=== PATIENT | female | born 1950 | race Caucasian/White ===

== ENCOUNTER 2018-12-11 22:27 | Emergency (ER) | payer MEDICARE ==
[~2018-12-11] VITALS: Ht 157.5 cm; Wt 77.1 kg
[~2018-12-11 22:27] MED LIST: ASPI-482 PO; LOSA1TAB25 PO; MECL25TA3 PO; METF500T16 PO; SIMV40TA3 PO
[2018-12-11 22:44] VITALS: BP 170/76
[2018-12-11] MEDS ORDERED: METO-239 PO (22:52)
[2018-12-11] MEDS ORDERED: APIX5TAB PO (22:52)
[2018-12-11] MEDS ORDERED: CYCL5TAB PO (23:24)
[2018-12-11] MEDS ORDERED: HYDR-3164 PO (23:24)
--- NOTE | 2018-12-11 23:24 | PHYS DOC ---
Past Medical History Past Medical History: A-Fib, High Cholesterol, Hypertension, Other Additional Past Medical Histor: high cholestrol Past Surgical History: Appendectomy, Tonsillectomy Additional Past Surgical Histo: rectocele with possible bladder suspension. Alcohol Use: Occasionally Drug Use: None Adult General Chief Complaint Chief Complaint: Neck Pain HPI HPI Patient is a 68 year old female who presents with complaining of neck pain. Patient states she woke up this morning and had right-sided neck pain that getting worse with movements of her neck. Patient states the pain radiated to her right arm and fingers without focal neuro deficit, fever and chills, nausea and vomiting, head injury, history of the same problem. Patient states she applied ice to heart and heat on her neck but her pain gradually getting worse. Patient states she took ibuprofen without improvement of her pain. Review of Systems Review of Systems Constitutional: Denies fever or chills [] Eyes: Denies change in visual acuity, redness, or eye pain [] HENT: Denies nasal congestion or sore throat [] Respiratory: Denies cough or shortness of breath [] Cardiovascular: No additional information not addressed in HPI [] GI: Denies abdominal pain, nausea, vomiting, bloody stools or diarrhea [] : Denies dysuria or hematuria [] Musculoskeletal: Denies back pain or joint pain , reports neck pain Integument: Denies rash or skin lesions [] Neurologic: Denies headache, focal weakness or sensory changes [] Endocrine: Denies polyuria or polydipsia [] All other systems were reviewed and found to be within normal limits, except as documented in this note. Current Medications Current Medications Current Medications Medications (Trade) Dose Ordered Sig/Vidal Start Time Stop Time Status Last Admin Dose Admin Acetaminophen/ Hydrocodone Bitart (Lortab 5/325) 1 tab 1X ONCE 12/11/18 23:30 12/11/18 23:31 DC 12/11/18 23:32 1 TAB Cyclobenzaprine HCl (Flexeril) 10 mg 1X ONCE 12/11/18 23:30 12/11/18 23:31 DC 12/11/18 23:32 10 MG Allergies Allergies Allergies Coded Allergies Type Severity Reaction Last Updated Verified shrimp Allergy Intermediate shrimp flavoring 12/31/14 Yes Physical Exam Physical Exam Constitutional: Well developed, well nourished, mild distress, non-toxic appearance. [] HENT: Normocephalic, atraumatic. Eyes: PERRLA, EOMI, conjunctiva normal, no discharge. [] Neck: Right right cervical muscle spasm, painful range of motion, no neck rigidity Cardiovascular:Heart rate regular rhythm, no murmur [] Lungs & Thorax: Bilateral breath sounds clear to auscultation [] Back: No tenderness, no CVA tenderness. [] Extremities: No tenderness, no cyanosis, no clubbing, ROM intact, no edema. [] Neurologic: Alert and oriented X 3, no focal deficits noted. [] Psychologic: Affect normal, judgement normal, mood normal. [] Current Patient Data Vital Signs Vital Signs Date Time Temp Pulse Resp B/P (MAP) Pulse Ox O2 Delivery O2 Flow Rate FiO2 12/11/18 23:32 98 Room Air 12/11/18 22:44 98.9 64 20 170/76 (107) 98.9 EKG EKG [] Radiology/Procedures Radiology/Procedures [] Course & Med Decision Making Course & Med Decision Making discharge: I've spoken with the patient and/or caregivers. I've explained the patient's condition, diagnosis and treatment plan based on information available to me at this time. I've answered the patient's and/or caregivers questions and addressed any concerns. The patient and/or caregivers have a good understanding the patient's diagnosis, condition and treatment plan as can be expected at this point. Vital signs have been stabilized. The patient's condition is stable for discharge from the emergency department. The patient will pursue further outpatient evaluation with her primary care provider or other designated consulting physician as outlined in the discharge instructions. Patient and/or caregivers are agreeable to this plan of care and follow-up instructions have been explained in detail. The patient and/or caregivers have received these instructions in written format and expressed understanding of these discharge instructions. The patient and her caregivers are aware that if any significant change in condition or worsening of symptoms should prompt him to immediately return to this of the closest emergency department. If an emergent department is not readily available I would encourage him to call 911. Rhoda Disclaimer Rhoda Disclaimer This electronic medical record was generated, in whole or in part, using a voice recognition dictation system. Departure Departure Impression: Primary Impression: Acute cervical myofascial strain Disposition: HOME, SELF-CARE (at 2330) Condition: IMPROVED Referrals: LUIZA,REY L MD (PCP) Patient Instructions: Cervical Strain and Sprain with [facility] Additional Instructions: Apply ice on your neck Follow-up with your primary care physician in 3-5 days Return to ER if not getting better Scripts Hydrocodone/Apap 5-325 (NORCO 5-325 TABLET) 1 Each Tablet 1 TAB PO PRN Q6HRS PRN for PAIN, #14 TAB 0 Refills Prov: RAÚL SHAVER MD 12/11/18 Cyclobenzaprine Hcl (CYCLOBENZAPRINE HCL) 5 Mg Tablet 1 TAB PO TID, #30 TAB Prov: RAÚL SHAVER MD 12/11/18 Problem Qualifiers Primary Impression: Acute cervical myofascial strain Encounter type: initial encounter Qualified Codes: S16.1XXA - Strain of muscle, fascia and tendon at neck level, initial encounter RAÚL SHAVER MD Dec 11, 2018 23:24
[2018-12-11] MEDS ORDERED: HYDROcodone/APAP 5/325MG 1 TAB TABLET PO ONE (23:30)
[2018-12-11] MEDS ORDERED: CYCLOBENZAPRINE 10 MG TABLET. PO ONE (23:30)
== END 2018-12-11 23:38 | disposition home or self-care (01) ==
LOC: ER 22:27
DX: S16.1XXA Strain of muscle, fascia and tendon at neck level, initial encounter (principal); I48.91 Unspecified atrial fibrillation; E78.00 Pure hypercholesterolemia, unspecified; I10 Essential (primary) hypertension; Z90.89 Acquired absence of other organs; Z91.013 Allergy to seafood; X58.XXXA Exposure to other specified factors, initial encounter; Y93.89 Activity, other specified; Y92.89 Other specified places as the place of occurrence of the external cause; Y99.8 Other external cause status
CPT/HCPCS: 99283